=== PATIENT | female | born 1950 | race Caucasian/White ===

== ENCOUNTER 2018-04-01 14:00 | Emergency (ER) | payer OTHER, MEDICAID ==
[~2018-04-01] VITALS: Ht 160 cm; Wt 83.9 kg
[~2018-04-01 14:00] MED LIST: ATENOLOL50 PO; CYSTEX PO; MAX PO; PRI20 PO
[2018-04-01 14:03] VITALS: BP 165/95; Ht 160 cm; Wt 83.9 kg
== END 2018-04-01 14:52 | disposition home or self-care (01) ==
LOC: ED 14:00
DX: N30.90 Cystitis, unspecified without hematuria (principal); I10 Essential (primary) hypertension; E11.9 Type 2 diabetes mellitus without complications; E78.00 Pure hypercholesterolemia, unspecified
CPT/HCPCS: 82962; J0696

== ENCOUNTER 2018-09-01 12:42 | Emergency (ER) | payer MEDICARE, MEDICAID ==
[~2018-09-01] VITALS: Ht 162.6 cm; Wt 81.6 kg
[2018-09-01 12:48] VITALS: Ht 162.6 cm; Wt 81.6 kg
[2018-09-01 15:20] VITALS: BP 184/81
== END 2018-09-01 15:30 | disposition home or self-care (01) ==
LOC: ED 12:42
DX: J06.9 Acute upper respiratory infection, unspecified (principal); J98.01 Acute bronchospasm; I10 Essential (primary) hypertension; E11.9 Type 2 diabetes mellitus without complications; E78.00 Pure hypercholesterolemia, unspecified; Z98.890 Other specified postprocedural states
CPT/HCPCS: J7512; J7613

== ENCOUNTER 2019-04-12 21:21 | Emergency (ER) | payer OTHER, MEDICAID ==
[~2019-04-12] VITALS: Ht 162.6 cm; Wt 83.9 kg
[2019-04-12 23:02] VITALS: BP 156/77
== END 2019-04-12 23:02 | disposition home or self-care (01) ==
LOC: ED 21:21
DX: N39.0 Urinary tract infection, site not specified (principal); R31.9 Hematuria, unspecified; R19.7 Diarrhea, unspecified; E11.9 Type 2 diabetes mellitus without complications; E78.00 Pure hypercholesterolemia, unspecified; I10 Essential (primary) hypertension; Z90.710 Acquired absence of both cervix and uterus
CPT/HCPCS: 82962